=== PATIENT | male | born 1990 | race Caucasian/White ===

== ENCOUNTER 2016-11-03 10:36 | Inpatient (IN) | payer OTHER ==
[2016-11-03 11:21] VITALS: BMI 23.0
--- NOTE | 2016-11-03 12:46 | HP ---
COWS - Scale Resting Pulse: 0= [place] 80 or Below Sweatin= Chills/Flushing Restless Observation: 3= Extraneous Movement Pupil Size: 0= Normal to Room Light Bone or Joint Aches: 2= Severe Diffuse Aches Runny Nose/ Eye Tearin= Runny Nose/Eyes GI Upset > 30mins: 3= Vomiting/Diarrhea Tremor Observation: 4= Gross Tremor/Twitching Yawning Observation: 1= 1-2x During Session Anxiety or Irritability: 2=Irritable/Anxious Goose Flesh Skin: 3=Piloerection COWS Score: 21 Admission ROS S - HPI Chief Complaint: "I don't like what this drug is doing to me, I do not like doing this." Pt. is here to Detox from Heroin. Allergies/Adverse Reactions: Allergies Allergy/AdvReac Type Severity Reaction Status Date / Time No Known Allergies Allergy Verified 11/03/16 11:21 History of Present Illness: Pt. is a 26 YO male here to Detox from Heroin. This is pt.'s first Detox admission at [facility]. Exam Limitations: No Limitations - Ebola screening Have you traveled outside of the country in the last 21 days: No Have you had contact with anyone from an Ebola affected area: No Have you been sick,other than usual withdrawal symptoms: No Do you have a fever: No - Review of Systems Constitutional: Chills, Diaphoresis, Fever, Loss of Appetite, Malaise, Night Sweats, Changes in sleep, Unintentional Wgt. Loss (Lost approx. 15 lbs. over last 6 months.) EENT: reports: Nose Congestion, Sinus Pressure Respiratory: reports: No Symptoms reported Cardiac: reports: Palpitations GI: reports: Constipated, Nausea, Poor Appetite, Vomiting, Abdominal cramping : reports: No Symptoms Reported Musculoskeletal: reports: Back Pain, Joint Pain, Neck Pain, Joint Stiffness Integumentary: reports: No Symptoms Reported Neuro: reports: Headache, Tremors Endocrine: reports: No Symptoms Reported Hematology: reports: No Symptoms Reported Psychiatric: reports: Judgement Intact, Mood/Affect Appropiate, Orientated x3, Anxious Other Systems: Reviewed and Negative Patient History - Patient Medical History Hx Anemia: No Hx Asthma: No Hx Chronic Obstructive Pulmonary Disease (COPD): No Hx Cancer: No Hx Cardiac Disorders: No Hx Congestive Heart Failure: No Hx Hypertension: No Hx Hypercholesterolemia: No Hx Pacemaker: No HX Cerebrovascular Accident: No Hx Seizures: No Hx Dementia: No Hx Diabetes: No Hx Gastrointestinal Disorders: No Hx Liver Disease: No Hx Genitourinary Disorders: No Hx Sexually Transmitted Disorders: No Hx Renal Disease (ESRD): No Hx Thyroid Disease: No Hx Human Immunodeficiency Virus (HIV): No (Negative History.) Hx Hepatitis C: No (Negative History.) Hx Depression: No Hx Suicide Attempt: No (PATIENT DENIES CURRENT SI / HI.) Hx Bipolar Disorder: No Hx Schizophrenia: No Other Medical History: DENIES. - Patient Surgical History Past Surgical History: No Hx Neurologic Surgery: No Hx Cataract Extraction: No Hx Cardiac Surgery: No Hx Lung Surgery: No Hx Breast Surgery: No Hx Breast Biopsy: No Hx Abdominal Surgery: No Hx Appendectomy: No Hx Cholecystectomy: No Hx Genitourinary Surgery: No Hx Section: No Hx Orthopedic Surgery: No Anesthesia Reaction: No - PPD History Previous Implant?: Yes Documented Results: Positive w/o proof (Completed Course of treatment: 2011.) Implanted On Prior [facility] Admission?: No PPD to be Administered?: No - Reproductive History Patient is a Female of Child Bearing Age (11 -55 yrs old): No (PATIENT IS MALE.) - Smoking Cessation Smoking history: Current every day smoker Have you smoked in the past 12 months: Yes Aproximately how many cigarettes per day: 20 Cigars Per Day: 0 Hx Chewing Tobacco Use: No Initiated information on smoking cessation: Yes 'Breaking Loose' booklet given: 11/03/16 (GIVEN ON UNIT.) - Substance & Tx. History Hx Alcohol Use: No Hx Substance Use: Yes Substance Use Type: Heroin, Marijuana Hx Substance Use Treatment: No - Substances Abused Heroin Route: Oral Frequency: Daily Amount used: 5 bags Age of first use: 24 Date of Last Use: 11/02/16 Marijuana/Hashish Route: Smoking Frequency: 1-3 times last 30 days Amount used: 1 Joint. Age of first use: 12 Date of Last Use: 10/31/16 Family Disease History - Family Disease History Family History: Denies Admission Physical Exam BHS - Vital Signs Vital Signs: Vital Signs - 24 hr 11/03/16 11:17 Temperature 98.3 F Pulse Rate 60 Respiratory 18 Rate Blood Pressure 121/69 - Physical General Appearance: Yes: Appropriately Dressed, Moderate Distress, Thin, Tremorous, Anxious HEENTM: Yes: Hearing grossly Normal, Normocephalic, Normal Voice, JAYA, Pharynx Normal Respiratory: Yes: Chest Non-Tender, Lungs Clear, No Respiratory Distress, No Accessory Muscle Use Neck: Yes: No masses,lesions,Nodules, Supple, Trachea in good position Breast: Yes: Breast Exam Deferred Cardiology: Yes: Regular Rhythm, Regular Rate, S1, S2 Abdominal: Yes: Normal Bowel Sounds, Non Tender, Flat, Soft Genitourinary: Yes: Within Normal Limits Back: Yes: Normal Inspection Musculoskeletal: Yes: full range of Motion, Gait Steady Extremities: Yes: Normal Range of Motion, Non-Tender, Tremors Neurological: Yes: Fully Oriented, Alert, Normal Mood/Affect, Normal Response Integumentary: Yes: Normal Color, Dry, Warm Lymphatic: Yes: Within Normal Limits - Diagnostic (1) Opioid dependence with withdrawal Current Visit: Yes Status: Acute (2) Cannabis dependence, uncomplicated Current Visit: Yes Status: Acute (3) Nicotine dependence Current Visit: Yes Status: Chronic Qualifiers: Nicotine product type: cigarettes Substance use status: uncomplicated Qualified Code(s): F17.210 - Nicotine dependence, cigarettes, uncomplicated Cleared for Admission [facility] - Detox or Rehab [facility] Level of Care: Medically Managed Detox Regimen/Protocol: Methadone [facility] Breath Alcohol Content Breath Alcohol Content: 0 Urine Drug Screen - Results Drug Screen Negative: No Urine Drug Screen Results: THC-Marijuana, OPI-Opiates, BZO-Benzodiazepines, MTD- Methadone
[2016-11-03] MEDS ORDERED: MENTHOL/PHENOL 1 EACH UD MM PRN (13:04)
[2016-11-03] MEDS ORDERED: ACETAMINOPHEN 325 MG TABLET (FP) PO PRN (13:04)
[2016-11-03] MEDS ORDERED: NICOTINE POLACRILEX 2 MG GUM BC PRN (13:04)
[2016-11-03] MEDS ORDERED: P-EPHED 60MG/TRIPROLIDI 2.5MG TABLET PO PRN (13:04)
[2016-11-03] MEDS ORDERED: METHADONE HCL 10 MG TABLET (FOR DETOX USE ONLY) PO ONE ×2 (13:04→23:00)
[2016-11-03] MEDS ORDERED: guaiFENesin/D-METHORPHAN HB 10 ML UNIT-DOSE CUPS PO PRN (13:04)
[2016-11-03] MEDS ORDERED: hydrOXYzine PAMOATE 50 MG CAPSULE (FP) PO PRN (13:04)
[2016-11-03] MEDS ORDERED: LOPERAMIDE HCL 2 MG CAPSULE PO PRN (13:04)
[2016-11-03] MEDS ORDERED: MAGNESIUM CITRATE 300 ML BOTTLE PO PRN (13:04)
[2016-11-03] MEDS ORDERED: MAG HYDROX/AL HYDROX/SIMETH 30 ML UNIT-DOSE CUP PO PRN (13:04)
[2016-11-03] MEDS ORDERED: MAGNESIUM HYDROX 2400MG/30ML ORAL SUSPENSION 30 ML CUP PO PRN (13:04)
[2016-11-03] MEDS ORDERED: IBUPROFEN 400 MG TABLET (FP) PO PRN (13:04)
[2016-11-03] MEDS ORDERED: ONDANSETRON *ODT* 4 MG TABLET SL PRN (13:09)
[2016-11-03] MEDS: diazePAM 5 MG TABLET PO PRN ×2 (14:14→22:11)
[2016-11-03] MEDS: cloNIDine HCL 0.1 MG TABLET PO SCH ×2 (14:14→22:12)
[2016-11-03] MEDS: NICOTINE 21 MG/24 HOURS TOPICAL PATCH TD SCH (14:15)
[2016-11-03 19:40] LABS: URINE APPEARANCE CLEAR; URINE BILIRUBIN 1+ (NEGATIVE); URINE BLOOD TRACE-INTA (NEGATIVE); URINE COLOR YELLOW; URINE GLUCOSE (UA) NEGATIVE (NEGATIVE); URINE KETONE 3+ (NEGATIVE); URINE LEUK ESTERASE NEGATIVE (NEGATIVE); URINE NITRITE NEGATIVE (NEGATIVE); URINE PROTEIN TRACE (NEGATIVE)
[2016-11-03] MEDS: THIAMINE HCL 100 MG TABLET (FP) PO SCH (22:12)
[2016-11-03] MEDS: diphenhydrAMINE HCL 50 MG CAPSULE PO PRN (22:12)
[2016-11-04] MEDS: diazePAM 5 MG TABLET PO PRN ×3 (05:53→21:02)
--- NOTE | 2016-11-04 09:32 | EKG ---
Test Reason : Blood Pressure : / mmHG Vent. Rate : 064 BPM Atrial Rate : 064 BPM P-R Int : 132 ms QRS Dur : 090 ms QT Int : 418 ms P-R-T Axes : 052 058 036 degrees QTc Int : 431 ms NORMAL SINUS RHYTHM WITH SINUS ARRHYTHMIA NORMAL ECG NO PREVIOUS ECGS AVAILABLE Confirmed by MARIANN BOJORQUEZ MD ([id number]) on 11/04/2016 9:32:07 AM Referred By: Confirmed By:MARIANN BOJORQUEZ MD
[2016-11-04] MEDS ORDERED: METHADONE HCL 10 MG TABLET (FOR DETOX USE ONLY) PO ONE (10:00)
[2016-11-04] MEDS: PRENATAL VITAMINS W/ FOLIC ACID TABLET (FP) PO SCH (10:06)
[2016-11-04] MEDS: cloNIDine HCL 0.1 MG TABLET PO SCH ×2 (10:06→22:07)
[2016-11-04] MEDS: NICOTINE 21 MG/24 HOURS TOPICAL PATCH TD SCH (10:06)
[2016-11-04 10:36] LABS: MCH 29.6 pg (25.7-33.7); MCHC 34.1 g/dl (32.0-35.9); MEAN CELL VOLUME 86.8 fl (80-96); MEAN PLT VOLUME 11.3 fl (7.5-11.1); PLATELET COUNT 146 K/MM3 (134-434); RDW 13.5 % (11.9-15.9); WHITE BLOOD COUNT 5.9 K/mm3 (4.0-10.0)
[2016-11-04 10:48] LABS: ANION GAP 7 (8-16); BILIRUBIN,TOTAL 1.3 mg/dL (0.2-1.0); CALCIUM 9.1 mg/dL (8.5-10.1); CO2 31 mmol/L (21-32); CREATININE 1.1 mg/dL (0.7-1.3); GLUCOSE,RANDOM 92 mg/dL (74-106); SGOT/AST 23 U/L (15-37); SGPT/ALT 34 U/L (12-78); TOT PROT 6.9 g/dl (6.4-8.2)
[2016-11-04 10:49] LABS: ALK PHOS 68 U/L (45-117)
--- NOTE | 2016-11-04 10:51 | PN ---
BHS COWS - Scale Resting Pulse: 0= [place] 80 or Below Sweatin=Flushed/Facial Moisture Restless Observation: 1= Difficult to Sit Still Pupil Size: 0= Normal to Room Light Bone or Joint Aches: 2= Severe Diffuse Aches Runny Nose/ Eye Tearin= Runny Nose/Eyes GI Upset > 30mins: 2= Nausea/Diarrhea Tremor Observation of Outstretched Hands: 2= Slight Tremor Visible Yawning Observation: 1= 1-2x During Session Anxiety or Irritability: 2=Irritable/Anxious Goose Flesh Skin: 0=Smooth Skin COWS Score: 14 BHS Progress Note (SOAP) Subjective: Anxiety,sweating,interrupted sleep,restless,body aches. Objective: 11/04/16 10:50 Vital Signs - 8 hr 11/04/16 11/04/16 11/04/16 03:27 06:27 10:16 Temperature 96.9 F L 98.4 F Pulse Rate 64 64 Respiratory 18 18 18 Rate Blood Pressure 99/60 109/66 Laboratory Last Values WBC 5.9 K/mm3 (4.0-10.0) 11/04/16 07:00 RBC 5.14 M/mm3 (4.00-5.60) 11/04/16 07:00 Hgb 15.2 GM/dL (11.7-16.9) 11/04/16 07:00 Hct 44.6 % (35.4-49) 11/04/16 07:00 MCV 86.8 fl (80-96) 11/04/16 07:00 MCH 29.6 pg (25.7-33.7) 11/04/16 07:00 MCHC 34.1 g/dl (32.0-35.9) 11/04/16 07:00 RDW 13.5 % (11.9-15.9) 11/04/16 07:00 Plt Count 146 K/MM3 (134-434) 11/04/16 07:00 MPV 11.3 fl (7.5-11.1) H 11/04/16 07:00 Sodium 140 mmol/L (136-145) 11/04/16 07:00 Potassium 3.9 mmol/L (3.5-5.1) 11/04/16 07:00 Chloride 102 mmol/L (98-107) 11/04/16 07:00 Carbon Dioxide 31 mmol/L (21-32) 11/04/16 07:00 Anion Gap 7 (8-16) L 11/04/16 07:00 BUN 14 mg/dL (7-18) 11/04/16 07:00 Creatinine 1.1 mg/dL (0.7-1.3) 11/04/16 07:00 Creat Clearance w eGFR > 60 (>60) 11/04/16 07:00 Random Glucose 92 mg/dL (74-106) 11/04/16 07:00 Calcium 9.1 mg/dL (8.5-10.1) 11/04/16 07:00 Total Bilirubin 1.3 mg/dL (0.2-1.0) H 11/04/16 07:00 AST 23 U/L (15-37) 11/04/16 07:00 ALT 34 U/L (12-78) 11/04/16 07:00 Alkaline Phosphatase 68 U/L (45-117) 11/04/16 07:00 Total Protein 6.9 g/dl (6.4-8.2) 11/04/16 07:00 Albumin 4.0 g/dl (3.4-5.0) 11/04/16 07:00 Urine Color Yellow 11/03/16 19:00 Urine Appearance Clear 11/03/16 19:00 Urine pH 7.0 (5.0-8.0) 11/03/16 19:00 Ur Specific [place] 1.020 (1.005-1.025) 11/03/16 19:00 Urine Protein Trace (NEGATIVE) H 11/03/16 19:00 Urine Glucose (UA) Negative (NEGATIVE) 11/03/16 19:00 Urine Ketones 3+ (NEGATIVE) H 11/03/16 19:00 Urine Blood Trace-inta (NEGATIVE) 11/03/16 19:00 Urine Nitrite Negative (NEGATIVE) 11/03/16 19:00 Urine Bilirubin 1+ (NEGATIVE) H 11/03/16 19:00 Urine Urobilinogen 1.0 mg/dL (0.2-1.0) 11/03/16 19:00 Ur Leukocyte Esterase Negative (NEGATIVE) 11/03/16 19:00 labs noted Assessment: 11/04/16 10:51 Withdrawal sx. Plan: Continue detox
[2016-11-04] MEDS: diphenhydrAMINE HCL 50 MG CAPSULE PO PRN (22:07)
[2016-11-04] MEDS: THIAMINE HCL 100 MG TABLET (FP) PO SCH (22:07)
[2016-11-05] MEDS: diazePAM 5 MG TABLET PO PRN ×2 (05:34→10:03)
--- NOTE | 2016-11-05 09:03 | PN ---
BHS COWS - Scale Resting Pulse: 0= [place] 80 or Below Sweatin=Flushed/Facial Moisture Restless Observation: 1= Difficult to Sit Still Pupil Size: 0= Normal to Room Light Bone or Joint Aches: 1= Mild Discomfort Runny Nose/ Eye Tearin= Runny Nose/Eyes GI Upset > 30mins: 2= Nausea/Diarrhea Tremor Observation of Outstretched Hands: 2= Slight Tremor Visible Yawning Observation: 1= 1-2x During Session Anxiety or Irritability: 2=Irritable/Anxious Goose Flesh Skin: 0=Smooth Skin COWS Score: 13 BHS Progress Note (SOAP) Subjective: Sweating,interrupted sleep,restless,muscle pain & body aches,anxiety Objective: 11/05/16 09:02 Vital Signs - 8 hr 11/05/16 11/05/16 03:25 06:13 Temperature 96.8 F L Pulse Rate 60 Respiratory 18 18 Rate Blood Pressure 91/61 Laboratory Results - last 24 hr 11/04/16 11/04/16 11/04/16 07:00 07:00 07:00 WBC 5.9 RBC 5.14 Hgb 15.2 Hct 44.6 MCV 86.8 MCH 29.6 MCHC 34.1 RDW 13.5 Plt Count 146 MPV 11.3 H Sodium 140 Potassium 3.9 Chloride 102 Carbon Dioxide 31 Anion Gap 7 L BUN 14 Creatinine 1.1 Creat Clearance w eGFR > 60 Random Glucose 92 Calcium 9.1 Total Bilirubin 1.3 H AST 23 ALT 34 Alkaline Phosphatase 68 Total Protein 6.9 Albumin 4.0 RPR Titer Nonreactive labs noted Assessment: 11/05/16 09:02 Withdrawal sx. Plan: Continue detox
[2016-11-05] MEDS ORDERED: METHADONE HCL 5 MG TABLET (FOR DETOX USE ONLY) PO ONE (10:00)
[2016-11-05] MEDS: cloNIDine HCL 0.1 MG TABLET PO SCH (10:03)
[2016-11-05] MEDS: NICOTINE 21 MG/24 HOURS TOPICAL PATCH TD SCH (10:03)
[2016-11-05] MEDS: PRENATAL VITAMINS W/ FOLIC ACID TABLET (FP) PO SCH (10:03)
[2016-11-05 17:48] VITALS: BP 95/54; PULSE 72; TEMP 98.2
[2016-11-06] MEDS ORDERED: METHADONE HCL 5 MG TABLET (FOR DETOX USE ONLY) PO ONE (10:00)
[2016-11-07] MEDS ORDERED: METHADONE HCL 10 MG TABLET (FOR DETOX USE ONLY) PO ONE (10:00)
[2016-11-08] MEDS ORDERED: METHADONE HCL 5 MG TABLET (FOR DETOX USE ONLY) PO ONE (06:00)
== END 2016-11-05 09:40 | disposition left against medical advice (07) | DRG 770 ==
LOC: YASAS 10:36 → Y3N 12:18
PROVIDERS: ADMIT Internal Medicine; ATTEND Internal Medicine
PROC: HZ2ZZZZ Detoxification Services for Substance Abuse Treatment (ICD-10-PCS; principal; 2016-11-03)
DX: F11.23 Opioid dependence with withdrawal (principal); F12.20 Cannabis dependence, uncomplicated; F17.210 Nicotine dependence, cigarettes, uncomplicated
CPT/HCPCS: 36415; 71020-TC; 80053; 81003; 85027; 86593; 93005; 93010

== ENCOUNTER 2017-12-15 16:47 | Inpatient (IN) | payer OTHER ==
[2017-12-15 19:19] VITALS: BMI 24.4
--- NOTE | 2017-12-15 20:18 | HP ---
COWS - Scale Resting Pulse: 0= [place] 80 or Below Sweatin=Flushed/Facial Moisture Restless Observation: 1= Difficult to Sit Still Pupil Size: 1= Pupils >than Normal Bone or Joint Aches: 4=Acute Joint/Muscle Pain Runny Nose/ Eye Tearin= Runny Nose/Eyes GI Upset > 30mins: 1= Stomach Cramp Tremor Observation: 2= Slight Tremor Visible Yawning Observation: 1= 1-2x During Session Anxiety or Irritability: 2=Irritable/Anxious Goose Flesh Skin: 0=Smooth Skin COWS Score: 16 Admission [facility] Chief Complaint: Heroin withdrawal symptoms Allergies/Adverse Reactions: Allergies Allergy/AdvReac Type Severity Reaction Status Date / Time No Known Allergies Allergy Verified 12/15/17 19:20 History of Present Illness: 27 years old male with 3 years history of heroin dependence is seeking admission to detox. Patient has been in previous detox and reports and reports insignificant period of sobriety. He has medical history of PPD positive, chlamydia and depression. He denies suicide attempt and suicidal ideation at this time. Exam Limitations: No Limitations - Ebola screening Have you traveled outside of the country in the last 21 days: No (N) Have you had contact with anyone from an Ebola affected area: No Have you been sick,other than usual withdrawal symptoms: No Do you have a fever: No - Review of Systems Constitutional: Chills, Loss of Appetite, Malaise, Night Sweats, Changes in sleep EENT: reports: No Symptoms Reported Respiratory: reports: No Symptoms reported Cardiac: reports: No Symptoms Reported GI: reports: Nausea, Poor Appetite, Poor Fluid Intake, Abdominal cramping : reports: No Symptoms Reported Musculoskeletal: reports: Muscle Pain Integumentary: reports: Dryness Neuro: reports: Tremors Endocrine: reports: No Symptoms Reported, Unexplained Weight Loss (reports 10- 15 pounds weight loss in 3 months) Hematology: reports: No Symptoms Reported Psychiatric: reports: Mood/Affect Appropiate, Orientated x3, Anxious Other Systems: Reviewed and Negative Patient History - Patient Medical History Hx Anemia: No Hx Asthma: No Hx Chronic Obstructive Pulmonary Disease (COPD): No Hx Cancer: No Hx Cardiac Disorders: No Hx Congestive Heart Failure: No Hx Hypertension: No Hx Hypercholesterolemia: No Hx Pacemaker: No HX Cerebrovascular Accident: No Hx Seizures: No Hx Dementia: No Hx Diabetes: No Hx Gastrointestinal Disorders: No Hx Liver Disease: No Hx Genitourinary Disorders: No Hx Sexually Transmitted Disorders: Yes ([place] - Treated) Hx Renal Disease (ESRD): No Hx Thyroid Disease: No Hx Human Immunodeficiency Virus (HIV): No Hx Hepatitis C: No Hx Depression: Yes (Not on medication) Hx Suicide Attempt: No Hx Bipolar Disorder: No Hx Schizophrenia: No Other Medical History: Anxiety - Not on medication - Patient Surgical History Past Surgical History: No Hx Neurologic Surgery: No Hx Cataract Extraction: No Hx Cardiac Surgery: No Hx Lung Surgery: No Hx Breast Surgery: No Hx Breast Biopsy: No Hx Abdominal Surgery: No Hx Appendectomy: No Hx Cholecystectomy: No Hx Genitourinary Surgery: No Hx Section: No Hx Orthopedic Surgery: No Anesthesia Reaction: No - PPD History Previous Implant?: No Documented Results: Positive w/o proof Implanted On Prior [facility] Admission?: No Results: NEG CXR 11/07 PPD to be Administered?: No - Reproductive History Patient is a Female of Child Bearing Age (11 -55 yrs old): No (Male) - Smoking Cessation Smoking history: Current every day smoker Have you smoked in the past 12 months: Yes Aproximately how many cigarettes per day: 30 Cigars Per Day: 0 Hx Chewing Tobacco Use: No Initiated information on smoking cessation: Yes 'Breaking Loose' booklet given: 12/15/17 - Substance & Tx. History Hx Alcohol Use: No Hx Substance Use: Yes Substance Use Type: Cocaine, Marijuana Hx [facility] - Substances Abused Heroin Route: SNIFF Frequency: Daily Amount used: $80 Age of first use: 24 Date of Last Use: 12/15/17 Family Disease History - Family Disease History Family Disease History: Diabetes: Grandparent (GRANDMOTHER HTN), Heart Disease: Grandparent, Father (ALCOHOLISM, COCAINE), Other: Father Admission Physical Exam BHS - Vital Signs Vital Signs: Vital Signs - 24 hr 12/15/17 18:47 Temperature 97.7 F Pulse Rate 78 Respiratory 18 Rate Blood Pressure 116/60 - Physical General Appearance: Yes: Moderate Distress, Tremorous, Irritable HEENTM: Yes: EOMI, Normal ENT Inspection, Normocephalic, Normal Voice, JAYA, Nasal Congestion Respiratory: Yes: Lungs Clear, Normal Breath Sounds, No Respiratory Distress Neck: Yes: Supple Breast: Yes: Breast Exam Deferred Cardiology: Yes: Regular Rhythm, Regular Rate Abdominal: Yes: Normal Bowel Sounds Genitourinary: Yes: Within Normal Limits Back: Yes: Normal Inspection Musculoskeletal: Yes: Within Normal Limits Extremities: Yes: Tremors Neurological: Yes: branch credit counselor II-XII NML intact, Alert, Normal Mood/Affect Integumentary: Yes: Warm Lymphatic: Yes: Within Normal Limits - Diagnostic (1) Depression Current Visit: Yes Status: Chronic Qualifiers: Depression Type: unspecified Qualified Code(s): F32.9 - Major depressive disorder, single episode, unspecified (2) Opioid dependence with withdrawal Current Visit: Yes Status: Chronic (3) Substance-induced anxiety disorder Current Visit: Yes Status: Chronic (4) Benzodiazepine withdrawal without complication Current Visit: Yes Status: Chronic (5) Cannabis dependence, uncomplicated Current Visit: Yes Status: Chronic (6) Cocaine abuse, uncomplicated Current Visit: Yes Status: Chronic (7) Nicotine dependence Current Visit: Yes Status: Chronic Qualifiers: Nicotine product type: cigarettes Substance use status: uncomplicated Qualified Code(s): F17.210 - Nicotine dependence, cigarettes, uncomplicated Cleared for Admission [facility] - Detox or Rehab [facility] Level of Care: Medically Managed Detox Regimen/Protocol: Methadone [facility] Breath Alcohol Content Breath Alcohol Content: 0 Urine Drug Screen - Results Drug Screen Negative: No Urine Drug Screen Results: THC-Marijuana, ARIANNA-Cocaine, OPI-Opiates, MTD- Methadone, FEN-Fentanyl
[2017-12-15] MEDS ORDERED: MAGNESIUM CITRATE 300 ML BOTTLE PO PRN (20:33)
[2017-12-15] MEDS ORDERED: MAGNESIUM HYDROX 2400MG/30ML ORAL SUSPENSION 30 ML CUP PO PRN (20:33)
[2017-12-15] MEDS ORDERED: LOPERAMIDE HCL 2 MG CAPSULE PO PRN (20:33)
[2017-12-15] MEDS ORDERED: IBUPROFEN 400 MG TABLET (FP) PO PRN (20:33)
[2017-12-15] MEDS ORDERED: P-EPHED 60MG/TRIPROLIDI 2.5MG TABLET PO PRN (20:33)
[2017-12-15] MEDS ORDERED: ACETAMINOPHEN 325 MG TABLET (FP) PO PRN (20:33)
[2017-12-15] MEDS ORDERED: MAG HYDROX/AL HYDROX/SIMETH 30 ML UNIT-DOSE CUP PO PRN (20:33)
[2017-12-15] MEDS ORDERED: guaiFENesin/D-METHORPHAN HB 10 ML UNIT-DOSE CUPS PO PRN (20:33)
[2017-12-15] MEDS ORDERED: MENTHOL/PHENOL 1 EACH UD MM PRN (20:33)
[2017-12-15] MEDS ORDERED: NICOTINE POLACRILEX 2 MG GUM BC PRN (20:33)
[2017-12-15] MEDS ORDERED: METHADONE HCL 10 MG TABLET (FOR DETOX USE ONLY) PO ONE ×2 (20:33→23:00)
--- NOTE | 2017-12-15 20:47 | HP ---
COWS - Scale Resting Pulse: 0= [place] 80 or Below Sweatin=Flushed/Facial Moisture Restless Observation: 1= Difficult to Sit Still Pupil Size: 1= Pupils >than Normal Bone or Joint Aches: 4=Acute Joint/Muscle Pain Runny Nose/ Eye Tearin= Runny Nose/Eyes GI Upset > 30mins: 1= Stomach Cramp Tremor Observation: 2= Slight Tremor Visible Yawning Observation: 1= 1-2x During Session Anxiety or Irritability: 2=Irritable/Anxious Goose Flesh Skin: 0=Smooth Skin COWS Score: 16 Admission ROS S - HPI Allergies/Adverse Reactions: Allergies Allergy/AdvReac Type Severity Reaction Status Date / Time No Known Allergies Allergy Verified 12/15/17 19:20 - Ebola screening Have you traveled outside of the country in the last 21 days: No (N) Have you had contact with anyone from an Ebola affected area: No Have you been sick,other than usual withdrawal symptoms: No Do you have a fever: No Patient History - Patient Medical History Hx Anemia: No Hx Asthma: No Hx Chronic Obstructive Pulmonary Disease (COPD): No Hx Cancer: No Hx Cardiac Disorders: No Hx Congestive Heart Failure: No Hx Hypertension: No Hx Hypercholesterolemia: No Hx Pacemaker: No HX Cerebrovascular Accident: No Hx Seizures: No Hx Dementia: No Hx Diabetes: No Hx Gastrointestinal Disorders: No Hx Liver Disease: No Hx Genitourinary Disorders: No Hx Sexually Transmitted Disorders: Yes ([place] - Treated) Hx Renal Disease (ESRD): No Hx Thyroid Disease: No Hx Human Immunodeficiency Virus (HIV): No Hx Hepatitis C: No Hx Depression: Yes (Not on medication) Hx Suicide Attempt: No Hx Bipolar Disorder: No Hx Schizophrenia: No Other Medical History: Anxiety - Not on medication - Patient Surgical History Past Surgical History: No Hx Neurologic Surgery: No Hx Cataract Extraction: No Hx Cardiac Surgery: No Hx Lung Surgery: No Hx Breast Surgery: No Hx Breast Biopsy: No Hx Abdominal Surgery: No Hx Appendectomy: No Hx Cholecystectomy: No Hx Genitourinary Surgery: No Hx Section: No Hx Orthopedic Surgery: No Anesthesia Reaction: No - PPD History Previous Implant?: No Documented Results: Positive w/o proof Implanted On Prior [facility] Admission?: No Results: NEG CXR 11/07 - Smoking Cessation Smoking history: Current every day smoker Have you smoked in the past 12 months: Yes Aproximately how many cigarettes per day: 30 Cigars Per Day: 0 Hx Chewing Tobacco Use: No Initiated information on smoking cessation: Yes - Substances Abused Heroin Route: SNIFF Frequency: Daily Amount used: $80 Age of first use: 24 Date of Last Use: 12/15/17 Family Disease History - Family Disease History Family Disease History: Diabetes: Grandparent (GRANDMOTHER HTN), Heart Disease: Grandparent, Father (ALCOHOLISM, COCAINE), Other: Father Admission Physical Exam BHS - Vital Signs Vital Signs: Vital Signs - 24 hr 12/15/17 18:47 Temperature 97.7 F Pulse Rate 78 Respiratory 18 Rate Blood Pressure 116/60 - Diagnostic (1) Depression Current Visit: Yes Status: Chronic Qualifiers: Depression Type: unspecified Qualified Code(s): F32.9 - Major depressive disorder, single episode, unspecified (2) Opioid dependence with withdrawal Current Visit: Yes Status: Chronic (3) Substance-induced anxiety disorder Current Visit: Yes Status: Chronic (4) Benzodiazepine withdrawal without complication Current Visit: Yes Status: Chronic (5) Cannabis dependence, uncomplicated Current Visit: Yes Status: Chronic (6) Cocaine abuse, uncomplicated Current Visit: Yes Status: Chronic (7) Nicotine dependence Current Visit: Yes Status: Chronic Qualifiers: Nicotine product type: cigarettes Substance use status: uncomplicated Qualified Code(s): F17.210 - Nicotine dependence, cigarettes, uncomplicated BHS Breath Alcohol Content Breath Alcohol Content: 0 Urine Drug Screen - Results Drug Screen Negative: No Urine Drug Screen Results: THC-Marijuana, ARIANNA-Cocaine, OPI-Opiates, MTD- Methadone, FEN-Fentanyl
[2017-12-15] MEDS: diazePAM 5 MG TABLET PO PRN (21:26)
[2017-12-15] MEDS ORDERED: MELATONIN 5 MG TABLETS PO PRN (22:00)
[2017-12-15] MEDS: THIAMINE HCL 100 MG TABLET (FP) PO SCH (22:35)
[2017-12-15 23:05] LABS: URINE APPEARANCE CLEAR; URINE BILIRUBIN NEGATIVE (<2.0 mg/dL); URINE COLOR YELLOW; URINE GLUCOSE (UA) NEGATIVE (NEGATIVE); URINE KETONE NEGATIVE (NEGATIVE); URINE LEUK ESTERASE NEGATIVE (NEGATIVE); URINE NITRITE NEGATIVE (NEGATIVE); URINE PROTEIN 1+ (NEGATIVE); URINE UROBILINOGEN NEGATIVE mg/dL (0.2-1.0)
[2017-12-15 23:10] LABS: EPI CELLS RARE /HPF (FEW); URINE HYALINE CAST 1 /lpf; URINE MUCUS MANY
[2017-12-16] MEDS ORDERED: METHADONE HCL 10 MG TABLET (FOR DETOX USE ONLY) PO ONE (10:00)
[2017-12-16] MEDS: diazePAM 5 MG TABLET PO PRN (10:18)
[2017-12-16] MEDS: PRENATAL VITAMINS W/ FOLIC ACID TABLET (FP) PO SCH (10:18)
[2017-12-16] MEDS: NICOTINE 14 MG/24 HOURS TOPICAL PATCH TD SCH (10:18)
[2017-12-16 10:55] LABS: HEMATOCRIT 44.9 % (35.4-49); HEMOGLOBIN 14.8 GM/dL (11.7-16.9); MCH 28.4 pg (25.7-33.7); MEAN PLT VOLUME 9.9 fl (7.5-11.1); PLATELET COUNT 205 K/MM3 (134-434); RBC 5.21 M/mm3 (4.00-5.60); RDW 13.8 % (11.9-15.9); WHITE BLOOD COUNT 7.2 K/mm3 (4.0-10.0)
--- NOTE | 2017-12-16 11:00 | EKG ---
Test Reason : Blood Pressure : / mmHG Vent. Rate : 064 BPM Atrial Rate : 064 BPM P-R Int : 140 ms QRS Dur : 088 ms QT Int : 370 ms P-R-T Axes : 049 061 043 degrees QTc Int : 381 ms NORMAL SINUS RHYTHM WITH SINUS ARRHYTHMIA NORMAL ECG Confirmed by MD DAYRON, LIA ([id number]) on 12/16/2017 11:00:09 AM Referred By: Confirmed By:LIA PADGETT MD
[2017-12-16 11:30] LABS: ALBUMIN 3.4 g/dl (3.4-5.0); ALK PHOS 82 U/L (45-117); ANION GAP 8 MMOL/L (8-16); BILIRUBIN,TOTAL 0.5 mg/dL (0.2-1); BLOOD UREA NITROGEN 13 mg/dL (7-18); CALCIUM 8.9 mg/dL (8.5-10.1); CHLORIDE 106 mmol/L (98-107); CO2 29 mmol/L (21-32); CREATININE 0.9 mg/dL (0.55-1.3); GLUCOSE,RANDOM 83 mg/dL (74-106); POTASSIUM 4.1 mmol/L (3.5-5.1); SGOT/AST 9 U/L (15-37); SGPT/ALT 19 U/L (13-61); SODIUM 143 mmol/L (136-145); TOT PROT 6.5 g/dl (6.4-8.2)
--- NOTE | 2017-12-16 12:26 | PN ---
BHS COWS - Scale Resting Pulse: 0= [place] 80 or Below Sweatin= Chills/Flushing Restless Observation: 3= Extraneous Movement Pupil Size: 0= Normal to Room Light Bone or Joint Aches: 2= Severe Diffuse Aches Runny Nose/ Eye Tearin= Runny Nose/Eyes GI Upset > 30mins: 2= Nausea/Diarrhea Tremor Observation of Outstretched Hands: 2= Slight Tremor Visible Yawning Observation: 1= 1-2x During Session Anxiety or Irritability: 2=Irritable/Anxious Goose Flesh Skin: 0=Smooth Skin COWS Score: 15 S Progress Note (SOAP) Subjective: Chills, tremor, body ache, nausea Objective: 12/16/17 12:23 Last Vital Signs Temp Pulse Resp BP Pulse Ox 97.4 F L 68 18 122/74 12/16/17 09:17 12/16/17 09:17 12/16/17 09:17 12/16/17 09:17 Laboratory Tests 12/15/17 12/16/17 12/16/17 21:30 07:00 07:00 WBC 7.2 RBC 5.21 Hgb 14.8 Hct 44.9 MCV 86.0 MCH 28.4 MCHC 33.0 RDW 13.8 Plt Count 205 D MPV 9.9 Sodium 143 Potassium 4.1 Chloride 106 Carbon Dioxide 29 Anion Gap 8 BUN 13 Creatinine 0.9 Creat Clearance w eGFR > 60 Random Glucose 83 Calcium 8.9 Total Bilirubin 0.5 AST 9 L ALT 19 Alkaline Phosphatase 82 Total Protein 6.5 Albumin 3.4 Urine Color Yellow Urine Appearance Clear Urine pH 7.0 Ur Specific [place] 1.024 Urine Protein 1+ H Urine Glucose (UA) Negative Urine Ketones Negative Urine Blood 1+ H Urine Nitrite Negative Urine Bilirubin Negative Urine Urobilinogen Negative Ur Leukocyte Esterase Negative Urine WBC (Auto) 2 Urine RBC (Auto) 11 Ur Epithelial Cells Rare Hyaline Casts 1 Urine Mucus Many Labs reviewed: abnormal UA Assessment: 12/16/17 12:25 Withdrawal symptoms Noted with abnormal UA Plan: Continue detox Abnormal UA: encouraged PO water hydration, repeat UA
--- NOTE | 2017-12-16 17:50 | CONSULT ---
[facility] Psychiatric Consult - Data Date of interview: 12/16/17 Admission source: [facility] Identifying data: Readmission to [facility] for this 27 y/o male self- referred for detoxification treatment (heroin,xanax,cannabis).Admitted to [address] [place] [address].Patient is ,a father of one,domiciled,unemployed and dependent on relatives for financial support. Substance Abuse History: Confirmed by the patient in this interview.Details in current [facility] report as follows : Smoking history: Current every day smoker. Have you smoked in the past 12 months: Yes. Aproximately how many cigarettes per day: 30. Cigars Per Day: 0. Hx Chewing Tobacco Use: No. Initiated information on smoking cessation: Yes. 'Breaking Loose' booklet given: . - Substance & Tx. History. Hx Alcohol Use: No. Hx Substance Use: Yes. Substance Use Type: Cocaine, Marijuana. Hx Substance Use Treatment: Yes ( [facility]). - Substances Abused. Heroin. Route: SNIFF. Frequency: Daily. Amount used: $80. Age of first use: 24. Date of Last Use: 12/15/17 Medical History: Noted report of positive PPD and past treatment for chlamydia. Psychiatric History: Patient denies. Physical/Sexual Abuse/Trauma History: Patient denies. Additional Comment: Urine Drug Screen Results: THC-Marijuana, ARIANNA-Cocaine, OPI- Opiates, MTD-Methadone, FEN-Fentanyl.Noted. Mental Status Exam - Mental Status Exam Alert and Oriented to: Time, Place, Person Cognitive Function: Good Patient Appearance: Unkempt, Disheveled Mood: Nervous, Withdrawn Affect: Mood Congruent Patient Behavior: Fatigued, Cooperative Speech Pattern: Clear Voice Loudness: Normal Thought Process: Goal Oriented Thought Disorder: Not Present Hallucinations: Denies Suicidal Ideation: Denies Homicidal Ideation: Denies Insight/Judgement: Poor Sleep: Poorly, Difficulty falling asleep Appetite: Good Muscle strength/Tone: Normal Gait/Station: Normal Psychiatric Findings - Problem List ([place] 1, 2,3) (1) Opioid dependence with withdrawal Current Visit: Yes Status: Acute (2) Benzodiazepine withdrawal without complication Current Visit: Yes Status: Acute (3) Cannabis dependence, uncomplicated Current Visit: Yes Status: Acute (4) Cocaine abuse, uncomplicated Current Visit: Yes Status: Acute (5) Nicotine dependence Current Visit: Yes Status: Acute Qualifiers: Nicotine product type: cigarettes Substance use status: uncomplicated Qualified Code(s): F17.210 - Nicotine dependence, cigarettes, uncomplicated (6) Insomnia Current Visit: Yes Status: Acute - Initial Treatment Plan Initial Treatment Plan: Psychoeducation.Sleep hygiene.Detoxification.Group + supportive therapy.Insomnia is addressed with ambien 10 mg po hs prn.Side effects/benefits discussed with the patient.Mr Gutierrez agrees to this careplan.Observation.
[2017-12-16] MEDS: THIAMINE HCL 100 MG TABLET (FP) PO SCH (22:35)
[2017-12-16] MEDS: ZOLPIDEM TARTRATE 10 MG TABLET (PARK CARE ONLY) PO PRN (22:37)
[2017-12-17] MEDS ORDERED: METHADONE HCL 5 MG TABLET (FOR DETOX USE ONLY) PO ONE (10:00)
[2017-12-17] MEDS: PRENATAL VITAMINS W/ FOLIC ACID TABLET (FP) PO SCH (10:12)
[2017-12-17] MEDS: NICOTINE 14 MG/24 HOURS TOPICAL PATCH TD SCH (10:12)
[2017-12-17] MEDS: diazePAM 5 MG TABLET PO PRN ×3 (10:12→22:29)
--- NOTE | 2017-12-17 11:23 | PN ---
[facility] Progress Note Note: UA noted with +protein/blood. Patient denies burning, frequency and urgency upon urination. Will repeat UA. Vital Signs Temperature 97.4 F L 12/17/17 09:27 Pulse Rate 93 H 12/17/17 09:27 Respiratory Rate 18 18 09:27 Blood Pressure 99/58 L 12/17/17 09:27 O2 Sat by Pulse Oximetry (%)
--- NOTE | 2017-12-17 12:49 | PN ---
[facility] COWS - Scale Resting Pulse: 1= SC 81-100 Sweatin= Chills/Flushing Restless Observation: 3= Extraneous Movement Pupil Size: 0= Normal to Room Light Bone or Joint Aches: 2= Severe Diffuse Aches Runny Nose/ Eye Tearin= Runny Nose/Eyes GI Upset > 30mins: 2= Nausea/Diarrhea Tremor Observation of Outstretched Hands: 2= Slight Tremor Visible Yawning Observation: 1= 1-2x During Session Anxiety or Irritability: 2=Irritable/Anxious Goose Flesh Skin: 0=Smooth Skin COWS Score: 16 [facility] Progress Note (SOAP) Subjective: Sweating, chills, tremor, interrupted sleep, anxious Objective: 12/17/17 12:48 Last Vital Signs Temp Pulse Resp BP Pulse Ox 97.4 F L 93 H 18 99/58 L 12/17/17 09:27 12/17/17 09:27 12/17/17 09:27 12/17/17 09:27 Laboratory Tests 12/15/17 12/16/17 12/16/17 21:30 07:00 07:00 WBC 7.2 RBC 5.21 Hgb 14.8 Hct 44.9 MCV 86.0 MCH 28.4 MCHC 33.0 RDW 13.8 Plt Count 205 D MPV 9.9 Sodium 143 Potassium 4.1 Chloride 106 Carbon Dioxide 29 Anion Gap 8 BUN 13 Creatinine 0.9 Creat Clearance w eGFR > 60 Random Glucose 83 Calcium 8.9 Total Bilirubin 0.5 AST 9 L ALT 19 Alkaline Phosphatase 82 Total Protein 6.5 Albumin 3.4 Urine Color Yellow Urine Appearance Clear Urine pH 7.0 Ur Specific [place] 1.024 Urine Protein 1+ H Urine Glucose (UA) Negative Urine Ketones Negative Urine Blood 1+ H Urine Nitrite Negative Urine Bilirubin Negative Urine Urobilinogen Negative Ur Leukocyte Esterase Negative Urine WBC (Auto) 2 Urine RBC (Auto) 11 Ur Epithelial Cells Rare Hyaline Casts 1 Urine Mucus Many RPR Titer 12/16/17 07:00 WBC RBC Hgb Hct MCV MCH MCHC RDW Plt Count MPV Sodium Potassium Chloride Carbon Dioxide Anion Gap BUN Creatinine Creat Clearance w eGFR Random Glucose Calcium Total Bilirubin AST ALT Alkaline Phosphatase Total Protein Albumin Urine Color Urine Appearance Urine pH Ur Specific [place] Urine Protein Urine Glucose (UA) Urine Ketones Urine Blood Urine Nitrite Urine Bilirubin Urine Urobilinogen Ur Leukocyte Esterase Urine WBC (Auto) Urine RBC (Auto) Ur Epithelial Cells Hyaline Casts Urine Mucus RPR Titer Nonreactive Labs reviewed: abnormal UA Assessment: 12/17/17 12:50 Withdrawal symptoms Noted with abnormal UA Plan: Continue detox Abnormal UA: encouraged PO water intake, follow up on repeated UA
[2017-12-17 15:04] LABS: URINE APPEARANCE CLEAR; URINE BILIRUBIN NEGATIVE (<2.0 mg/dL); URINE COLOR LTYELLOW; URINE GLUCOSE (UA) NEGATIVE (NEGATIVE); URINE KETONE NEGATIVE (NEGATIVE); URINE LEUK ESTERASE NEGATIVE (NEGATIVE); URINE NITRITE NEGATIVE (NEGATIVE); URINE PROTEIN NEGATIVE (NEGATIVE); URINE UROBILINOGEN NEGATIVE mg/dL (0.2-1.0)
[2017-12-17] MEDS: THIAMINE HCL 100 MG TABLET (FP) PO SCH (22:30)
[2017-12-17] MEDS: ZOLPIDEM TARTRATE 10 MG TABLET (PARK CARE ONLY) PO PRN (22:30)
[2017-12-18] MEDS ORDERED: METHADONE HCL 5 MG TABLET (FOR DETOX USE ONLY) PO ONE (10:00)
[2017-12-18] MEDS: PRENATAL VITAMINS W/ FOLIC ACID TABLET (FP) PO SCH (10:02)
[2017-12-18] MEDS: diazePAM 5 MG TABLET PO PRN ×2 (10:02→17:35)
[2017-12-18] MEDS: NICOTINE 14 MG/24 HOURS TOPICAL PATCH TD SCH (10:02)
--- NOTE | 2017-12-18 11:52 | PN ---
[facility] Progress Note (SOAP) Subjective: Chills, sweating, interrupted sleep Objective: 12/18/17 11:50 Last Vital Signs Temp Pulse Resp BP Pulse Ox 97.0 F L 73 18 106/71 12/18/17 09:13 12/18/17 09:13 12/18/17 09:13 12/18/17 09:13 Laboratory Tests 12/15/17 12/16/17 12/16/17 21:30 07:00 07:00 WBC 7.2 RBC 5.21 Hgb 14.8 Hct 44.9 MCV 86.0 MCH 28.4 MCHC 33.0 RDW 13.8 Plt Count 205 D MPV 9.9 Sodium 143 Potassium 4.1 Chloride 106 Carbon Dioxide 29 Anion Gap 8 BUN 13 Creatinine 0.9 Creat Clearance w eGFR > 60 Random Glucose 83 Calcium 8.9 Total Bilirubin 0.5 AST 9 L ALT 19 Alkaline Phosphatase 82 Total Protein 6.5 Albumin 3.4 Urine Color Yellow Urine Appearance Clear Urine pH 7.0 Ur Specific [place] 1.024 Urine Protein 1+ H Urine Glucose (UA) Negative Urine Ketones Negative Urine Blood 1+ H Urine Nitrite Negative Urine Bilirubin Negative Urine Urobilinogen Negative Ur Leukocyte Esterase Negative Urine WBC (Auto) 2 Urine RBC (Auto) 11 Ur Epithelial Cells Rare Hyaline Casts 1 Urine Mucus Many RPR Titer 12/16/17 12/17/17 07:00 10:30 WBC RBC Hgb Hct MCV MCH MCHC RDW Plt Count MPV Sodium Potassium Chloride Carbon Dioxide Anion Gap BUN Creatinine Creat Clearance w eGFR Random Glucose Calcium Total Bilirubin AST ALT Alkaline Phosphatase Total Protein Albumin Urine Color Ltyellow Urine Appearance Clear Urine pH 8.0 Ur Specific [place] 1.012 Urine Protein Negative Urine Glucose (UA) Negative Urine Ketones Negative Urine Blood Negative Urine Nitrite Negative Urine Bilirubin Negative Urine Urobilinogen Negative Ur Leukocyte Esterase Negative Urine WBC (Auto) Urine RBC (Auto) Ur Epithelial Cells Hyaline Casts Urine Mucus RPR Titer Nonreactive Labs reviewed Assessment: 12/18/17 11:51 Withdrawal symptoms Plan: Continue detox
[2017-12-18] MEDS: THIAMINE HCL 100 MG TABLET (FP) PO SCH (22:29)
[2017-12-18] MEDS: hydrOXYzine PAMOATE 50 MG CAPSULE (FP) PO PRN (22:30)
[2017-12-18] MEDS: ZOLPIDEM TARTRATE 10 MG TABLET (PARK CARE ONLY) PO PRN (22:30)
[2017-12-19] MEDS ORDERED: METHADONE HCL 10 MG TABLET (FOR DETOX USE ONLY) PO ONE (10:00)
[2017-12-19] MEDS: NICOTINE 14 MG/24 HOURS TOPICAL PATCH TD SCH (10:14)
[2017-12-19] MEDS: PRENATAL VITAMINS W/ FOLIC ACID TABLET (FP) PO SCH (10:14)
--- NOTE | 2017-12-19 12:28 | PN ---
[facility] Progress Note (SOAP) Subjective: Tremor, sweating Objective: 12/19/17 12:27 Last Vital Signs Temp Pulse Resp BP Pulse Ox 97.0 F L 68 18 104/65 12/19/17 09:11 12/19/17 09:11 12/19/17 09:11 12/19/17 09:11 Laboratory Tests 12/15/17 12/16/17 12/16/17 21:30 07:00 07:00 WBC 7.2 RBC 5.21 Hgb 14.8 Hct 44.9 MCV 86.0 MCH 28.4 MCHC 33.0 RDW 13.8 Plt Count 205 D MPV 9.9 Sodium 143 Potassium 4.1 Chloride 106 Carbon Dioxide 29 Anion Gap 8 BUN 13 Creatinine 0.9 Creat Clearance w eGFR > 60 Random Glucose 83 Calcium 8.9 Total Bilirubin 0.5 AST 9 L ALT 19 Alkaline Phosphatase 82 Total Protein 6.5 Albumin 3.4 Urine Color Yellow Urine Appearance Clear Urine pH 7.0 Ur Specific [place] 1.024 Urine Protein 1+ H Urine Glucose (UA) Negative Urine Ketones Negative Urine Blood 1+ H Urine Nitrite Negative Urine Bilirubin Negative Urine Urobilinogen Negative Ur Leukocyte Esterase Negative Urine WBC (Auto) 2 Urine RBC (Auto) 11 Ur Epithelial Cells Rare Hyaline Casts 1 Urine Mucus Many RPR Titer 12/16/17 12/17/17 07:00 10:30 WBC RBC Hgb Hct MCV MCH MCHC RDW Plt Count MPV Sodium Potassium Chloride Carbon Dioxide Anion Gap BUN Creatinine Creat Clearance w eGFR Random Glucose Calcium Total Bilirubin AST ALT Alkaline Phosphatase Total Protein Albumin Urine Color Ltyellow Urine Appearance Clear Urine pH 8.0 Ur Specific [place] 1.012 Urine Protein Negative Urine Glucose (UA) Negative Urine Ketones Negative Urine Blood Negative Urine Nitrite Negative Urine Bilirubin Negative Urine Urobilinogen Negative Ur Leukocyte Esterase Negative Urine WBC (Auto) Urine RBC (Auto) Ur Epithelial Cells Hyaline Casts Urine Mucus RPR Titer Nonreactive Labs reviewed Assessment: 12/19/17 12:27 Withdrawal symptoms Plan: Continue detox
[2017-12-19 13:38] VITALS: TEMP 97.6
[2017-12-19] MEDS: hydrOXYzine PAMOATE 50 MG CAPSULE (FP) PO PRN ×2 (14:46→22:26)
[2017-12-19] MEDS: ZOLPIDEM TARTRATE 10 MG TABLET (PARK CARE ONLY) PO PRN (22:26)
[2017-12-19] MEDS: THIAMINE HCL 100 MG TABLET (FP) PO SCH (22:26)
[2017-12-20] MEDS ORDERED: METHADONE HCL 5 MG TABLET (FOR DETOX USE ONLY) PO ONE (06:00)
[2017-12-20 06:22] VITALS: BP 108/72; PULSE 66
--- NOTE | 2017-12-20 11:24 | DS ---
[facility] Detox Discharge Summary Admission Date: 12/15/17 Discharge Date: 12/20/17 - History Present History: Cannabis Dependence, Cocaine Dependence, Opioid Dependence Pertinent Past History: Depression - Physical Exam Results Vital Signs: Vital Signs Temperature 97.6 F 12/20/17 06:22 Pulse Rate 66 12/20/17 06:22 Respiratory Rate 18 12/20/17 06:22 Blood Pressure 108/72 12/20/17 06:22 O2 Sat by Pulse Oximetry (%) Pertinent Admission Physical Exam Findings: Withdrawal sx Laboratory Last Values WBC 7.2 K/mm3 (4.0-10.0) 12/16/17 07:00 RBC 5.21 M/mm3 (4.00-5.60) 12/16/17 07:00 Hgb 14.8 GM/dL (11.7-16.9) 12/16/17 07:00 Hct 44.9 % (35.4-49) 12/16/17 07:00 MCV 86.0 fl (80-96) 12/16/17 07:00 MCH 28.4 pg (25.7-33.7) 12/16/17 07:00 MCHC 33.0 g/dl (32.0-35.9) 12/16/17 07:00 RDW 13.8 % (11.9-15.9) 12/16/17 07:00 Plt Count 205 K/MM3 (134-434) D 12/16/17 07:00 MPV 9.9 fl (7.5-11.1) 12/16/17 07:00 Sodium 143 mmol/L (136-145) 12/16/17 07:00 Potassium 4.1 mmol/L (3.5-5.1) 12/16/17 07:00 Chloride 106 mmol/L (98-107) 12/16/17 07:00 Carbon Dioxide 29 mmol/L (21-32) 12/16/17 07:00 Anion Gap 8 MMOL/L (8-16) 12/16/17 07:00 BUN 13 mg/dL (7-18) 12/16/17 07:00 Creatinine 0.9 mg/dL (0.55-1.3) 12/16/17 07:00 Creat Clearance w eGFR > 60 (>60) 12/16/17 07:00 Random Glucose 83 mg/dL (74-106) 12/16/17 07:00 Calcium 8.9 mg/dL (8.5-10.1) 12/16/17 07:00 Total Bilirubin 0.5 mg/dL (0.2-1) 12/16/17 07:00 AST 9 U/L (15-37) L 12/16/17 07:00 ALT 19 U/L (13-61) 12/16/17 07:00 Alkaline Phosphatase 82 U/L (45-117) 12/16/17 07:00 Total Protein 6.5 g/dl (6.4-8.2) 12/16/17 07:00 Albumin 3.4 g/dl (3.4-5.0) 12/16/17 07:00 Urine Color [place] 12/17/17 10:30 Urine Appearance Clear 12/17/17 10:30 Urine pH 8.0 (5.0-8.0) 12/17/17 10:30 Ur Specific [place] 1.012 (1.001-1.035) 12/17/17 10:30 Urine Protein Negative (NEGATIVE) 12/17/17 10:30 Urine Glucose (UA) Negative (NEGATIVE) 12/17/17 10:30 Urine Ketones Negative (NEGATIVE) 12/17/17 10:30 Urine Blood Negative (NEGATIVE) 12/17/17 10:30 Urine Nitrite Negative (NEGATIVE) 12/17/17 10:30 Urine Bilirubin Negative (<2.0 mg/dL) 12/17/17 10:30 Urine Urobilinogen Negative mg/dL (0.2-1.0) 12/17/17 10:30 Ur Leukocyte Esterase Negative (NEGATIVE) 12/17/17 10:30 Urine WBC (Auto) 2 /hpf (3-5) 12/15/17 21:30 Urine RBC (Auto) 11 /hpf (0-3) 12/15/17 21:30 Ur Epithelial Cells Rare /HPF (FEW) 12/15/17 21:30 Hyaline Casts 1 /lpf 12/15/17 21:30 Urine Mucus Many 12/15/17 21:30 RPR Titer Nonreactive (NONREACTIVE) 12/16/17 07:00 Labs noted - Treatment Hospital Course: Detox Protocol Followed, Detoxed Safely, Responded well, Discharged Condition Good - Medication Discharge Medications: Ambulatory Orders NK [No Known Home Medication] 11/03/16 - Diagnosis (1) Benzodiazepine withdrawal without complication Current Visit: Yes Status: Acute (2) Opioid dependence with withdrawal Current Visit: Yes Status: Acute (3) Substance-induced anxiety disorder Current Visit: Yes Status: Acute (4) Cannabis dependence, uncomplicated Current Visit: Yes Status: Chronic (5) Cocaine abuse, uncomplicated Current Visit: Yes Status: Chronic (6) Depression Current Visit: Yes Status: Chronic Qualifiers: Depression Type: unspecified Qualified Code(s): F32.9 - Major depressive disorder, single episode, unspecified (7) Nicotine dependence Current Visit: Yes Status: Chronic Qualifiers: Nicotine product type: cigarettes Substance use status: uncomplicated Qualified Code(s): F17.210 - Nicotine dependence, cigarettes, uncomplicated - AMA Did Patient Leave Against Medical Advice: No
[2017-12-20] MEDS: PRENATAL VITAMINS W/ FOLIC ACID TABLET (FP) PO SCH (11:43)
[2017-12-20] MEDS: NICOTINE 14 MG/24 HOURS TOPICAL PATCH TD SCH (11:43)
== END 2017-12-20 11:45 | disposition home or self-care (01) | DRG 773 ==
LOC: YASAS 16:47 → Y3N 19:22
PROC: HZ2ZZZZ Detoxification Services for Substance Abuse Treatment (ICD-10-PCS; principal; 2017-12-15)
DX: F11.23 Opioid dependence with withdrawal (principal); F12.20 Cannabis dependence, uncomplicated; F14.10 Cocaine abuse, uncomplicated; F17.210 Nicotine dependence, cigarettes, uncomplicated; F19.280 Other psychoactive substance dependence with psychoactive substance-induced anxiety disorder; F32.9 Major depressive disorder, single episode, unspecified; G47.00 Insomnia, unspecified; R82.90 Unspecified abnormal findings in urine; Z87.438 Personal history of other diseases of male genital organs
CPT/HCPCS: 36415; 71046-TC-FY; 80053; 81003; 81015; 85027; 86593; 93005; 93010